=== PATIENT | female | born 1990 | race Caucasian/White ===

== ENCOUNTER 2021-09-14 21:12 | Emergency (ER) | payer OTHER, SELFPAY ==
[2021-09-14 21:38] VITALS: BP 127/27; PULSE 95; RESP 18; TEMP 36.9; O2SAT 98
[2021-09-14 21:52] LABS: Bilirubin Negative (Negative); Blood Trace-lysed (Negative); Clarity Clear (Clear); Glucose Negative (Negative); Ketones Negative (Negative); Leukocyte Esterase Negative (Negative); Nitrite Negative (Negative); Specific Gravity 1.025 (1.005-1.025); Urobilinogen 0.2 EU/dL (Up TO 0.2)
--- NOTE | 2021-09-14 21:58 | ED.GENADUL_ITS ---
Discharge Plan Disposition Patient Disposition: HOME Condition: Improving Discharge Details Clinical Impression: Dysuria Primary Care Provider: Unknown,Unknown ED Provider: Terry Stafford Home Meds and New Rx's Prescriptions: New cephalexin 500 mg capsule 500 mg PO TID 7 Days Qty: 21 RF: 0 Discharge Instructions Instructions: Dysuria (ED) Additional Instructions: At this time your CAT scan is negative for any significant abnormality per our radiologist. We will continue you on a medication called Keflex. We we will start the process to establish a new primary care provider for you. If you notice any worsening of your symptoms, or any new symptoms such as vomiting, diarrhea, fever, chills, shortness of breath, chest pain, numbness, weakness, or fainting , please return immediately to the emergency department for reevaluation. Please follow up with your primary care provider as soon as possible for reassessment and reevaluation. As always, it was a pleasure p articipating in your medical care today. Medical Decision Making <Arpan Oglesby MD - Last Filed: 09/14/21 22:49> 30-year-old female states she has had 2 weeks of recurrent symptoms of urinary tract infection with urgency, burning with urination, increased frequency of urination. She states she was treated with a course of Bactrim for 5 days in the middle of the month, seems to have recurrent symptoms and then was placed on ofloxacin which she finished 2 days ago. She states she is were prescribed by [employer]. She recently moved to [place] from her home in [place] and needs to reestablish primary care. Patient arrives ER afebrile, slightly depressed heart rate. She does have suprapubic tenderness and left flank tenderness on exam. Differential diagnosis includes pyelonephritis, cystitis, kidney stone or underlying renal abscess. Patient IV access established, given fluid bolus, acetaminophen, referred for laboratory testing, urinalysis and CT imaging. <Terry Stafford DO - Last Filed: 09/14/21 23:59> Case was signed out to me by my colleague Dr. Arpan Oglesby. Please refer to his HPI, physical exam assessment and plan. At time of signout we are pending CT scan. Per virtual radiology there is no evidence of acute process noted on CT scan. Patient's laboratory work-up has returned notably reassuring. No evidence of severe UTI or pyelonephritis. Pending urine culture per Dr. Oglesby. Dr. Oglesby did recommend IV antibiotics ceftriaxone and continuation with Keflex for the next few days. We will continue with this plan. On reassessment patient stable, appears well. No signs of an acute surgical abdomen. Vital signs stable. Patient stable for discharge at this time, will continue with plan. That being said we will start the process for establishment of new primary care provider, they will discuss with the patient the importance of potential further evaluation by urology in the future if symptoms do not resolve. Discussed red flags which return. I have extensively reviewed the treatment plan and discharge instructions with the patient. I have addressed all patient concerns at this time. The patient was made aware of what symptoms to monitor for that would warrant a return to the emergency department. Discussed the plan with the patient, they demonstrate verbal understanding and agreement with our assessment and plan at this time. The documentation in this chart was dictated using [employer] dictation software. Please excuse any dictation errors. FINDINGS: Liver: Normal. No mass. Gallbladder and bile ducts: Normal. No calcified stones. No ductal dilation. Pancreas: Normal. No ductal dilation. Spleen: Normal. No splenomegaly. Adrenal glands: Normal. No mass. Kidneys and ureters: Normal. No hydronephrosis. Stomach and bowel: Unremarkable. No obstruction. No mucosal thickening. Appendix: No evidence of appendicitis. Intraperitoneal space: Unremarkable. No free air. No significant fluid collection. Vasculature: Unremarkable. No abdominal aortic aneurysm. Lymph nodes: Unremarkable. No enlarged lymph nodes. Urinary bladder: Unremarkable as visualized. Reproductive: Unremarkable as visualized. Bones/joints: Unremarkable. No acute fracture. Soft tissues: Unremarkable. IMPRESSION: No acute findings. Thank you for allowing us to participate in the care of your patient. Dictated and Authenticated by: Leonardo Tomas MD 09/14/2021 11:11 PM Eastern Time ([place] & [place]) HPI <Arpan Oglesby MD - Last Filed: 09/14/21 22:49> General Mode of arrival: ambulatory . Date/Time Provider Initiated Documentation: 09/14/21 21:30 . Limitations to Documentation: no limitations . Information obtained by: patient . History of Present Illness 30 year old F presents to the emergency department with the chief complaint of Left greater than right flank pain and dysuria, described as moderate and similar to prior episodes, Quality is described as dull, and is localized to the back and left. Patient reports no radiation. Patient started experiencing this day(s) and it has been intermittent. No relieving factors improve symptom(s), No exacerbating factors reported . Patient notes fever/chills and loss of appetite. Patient did receive the following treatments prior to arrival, other (Course of Bactrim for 5 days approximately August 31-, ciprofloxacin for 5 days finishing 2 days) Related Data Home Medications Medication Instructions Recorded Confirmed cephalexin 500 mg PO TID 7 Days #21 cap 09/14/21 Previous Rx's Medication Instructions Recorded cephalexin 500 mg PO TID 7 Days #21 cap 09/14/21 Allergies Allergy/AdvReac Type Severity Reaction Status Date / Time amoxicillin AdvReac Unverified 09/14/21 21:43 General Stated Complaint: Urinary ZEUS: 4 Review of Systems <Arpan Oglebsy MD - Last Filed: 09/14/21 22:49> Narrative: See HPI. No nausea or vomiting. Positive subjective fevers at home but no objective fevers. Currently having menses. 8 systems reviewed and otherwise negative PFSH <Arpan Oglesby MD - Last Filed: 09/14/21 22:49> All Active Problems (Updated 09/14/21 @ 22:48 by Arpan Oglesby MD) Dysuria (Acute) Social History Smoking/Tobacco Use Status: Never Smoking risk assessment performed?: Yes Substance use type: does not use Do you feel safe at home: Yes Do you feel safe in your relationship?: Yes Exam <Arpan Oglesby MD - Last Filed: 09/14/21 22:49> Narrative Exam Narrative: GEN: awake, alert, oriented 3. Pleasant, well groomed, interactive. HEAD: Normocephalic, atraumatic ENT: Mucous membranes moist, oropharynx unremarkable, External ear exam unremarkable EYES: PERRL, EOMI NECK: Full ROM, no KERI, no menigismus CHEST/RESP: Nontender, clear to auscultation bilateral, no wheeze/rhonchi/rales CARDIOVASCULAR: RRR, no murmur, rub destin. 2+ Rad pulse bilateral ABDOMEN: Soft, suprapubic tenderness, no mass. +Bowel sounds. Minimal left flank tenderness to percussion. EXT: Full ROM, no edema, no rash Neuro: Grossly normal neurologic exam, conversant, interactive. Psych: Speech fluent, thoughts congruent, affect normal Course <Arpan Oglesby MD - Last Filed: 09/14/21 22:49> Vital Signs Vital signs: Vital Signs Temperature 36.9 C 09/14/21 21:38 Pulse 95 H 09/14/21 21:38 Respiratory Rate 18 09/14/21 21:38 Blood Pressure 127/27 L 09/14/21 21:38 Pulse Oximetry 98 09/14/21 21:38 Temperature 36.9 C 09/14/21 21:38 Temperature Source Oral 09/14/21 21:38 Pulse 95 H 09/14/21 21:38 Respiratory Rate 18 09/14/21 21:38 Respiratory Effort 09/14/21 21:47 Blood Pressure 127/27 L 09/14/21 21:38 Blood Pressure Position Sitting 09/14/21 21:38 Pulse Oximetry 98 09/14/21 21:38 Pain Level 6 09/14/21 21:38 Lab/Test Results Lab/Test Results: POC- Test(urine) Negative Sign Out <Arpan Oglesby MD - Last Filed: 09/14/21 22:49> Sign Out Data: Sign Out Comment: followup CT, ? L pyelo/stone Last updated by Arpan Oglesby MD at 09/14/21 22:45
[2021-09-14 22:03] LABS: Bacteria Rare HPF (Negative); C & S Indicated? No; Casts Negative LPF (Negative); Crystals Negative HPF (Negative); Epithelial Cells Rare HPF (Negative); Mucus Negative (Negative); WBC Negative HPF (0-5)
[2021-09-14 22:19] LABS: Abs Immature Grans 0.03 10^3/uL (0.0-0.06); Absolute Basophil Count 0.06 10^3/uL (0.0-0.2); Absolute Eosinophil Count 0.14 10^3/uL (0.0-0.7); Absolute Lymphocyte Count 3.64 10^3/uL (1.2-3.4); Absolute Monocyte Count 0.54 10^3/uL (0.1-0.8); Absolute Neutrophil Count 4.37 10^3/uL (1.2-6.7); Basophils % 0.7; Eosinophils % 1.6; HCT 37.9 % (36.0-46.0); HGB 12.8 g/dL (11.2-15.7); Immature Grans % 0.3; Lymphocytes % 41.5; MCH 31.1 pg (27.0-33.0); MCHC 33.8 % (32.0-36.0); MPV 8.6 fL (8.0-11.0); Monocytes % 6.2; Neutrophils % 49.7; Nucleated RBC 0 %; Platelet Count 306 10^3/uL (130-400); RBC 4.12 10^6/uL (3.93-5.22); RDW 11.9 % (11.7-14.6); RDW-SD 40.4 fL; WBC 8.78 10^3/uL (4.4-10.8)
[2021-09-14] MEDS: ACETAMINOPHEN 1,000 MG/100 ML BTL 400 MG IVPB (22:27)
[2021-09-14] MEDS: Normal Saline 1,000 ML 1000 ML IV (22:27)
[2021-09-14 22:32] LABS: ALT 22 U/L (14-59); AST 13 U/L (15-37); Albumin 4.1 g/dL (3.4-5.0); Alkaline Phosphatase 50 U/L (46-116); Anion Gap 5.6 mmol/L (3-11); BUN 13 mg/dL (7-18); Bilirubin, Total 0.2 mg/dL (0.2-1.0); CO2 30.4 mmol/L (21.0-32.0); CREATININE 0.8 mg/dL (0.55-1.02); Calcium 8.4 mg/dL (8.5-10.1); Chloride 102 mmol/L (98-107); Glucose 92 mg/dL (74-106); Potassium 3.7 mmol/L (3.5-5.1); Sodium 138 mmol/L (136-145); Total Protein 7.5 g/dL (6.4-8.2)
--- NOTE | 2021-09-14 22:43 | DI.CT_ITS ---
Exam(s) CT RENAL COLIC WO EXAM: CT RENAL COLIC WO CLINICAL HISTORY: L flank pain, dysuria. TECHNIQUE: Imaging Protocol: Axial computed tomography images with coronal and sagittal reformatted images were created and reviewed CONTRAST MATERIAL: Intravenous: none Oral: None COMPARISON: No exams were available for comparison FINDINGS: VISUALIZED LUNG BASES: No nodules nor pleural effusions evident. ABDOMEN: There is no ascites. LIVER: There are no obvious focal hepatic lesions evident of this noninfused study. GALLBLADDER/BILIARY: Gallbladder is contracted and difficult to evaluate. No obvious calcified galls tones. CBD is not dilated. PANCREAS: No evidence of pancreatic mass nor dilatation of the pancreatic duct. SPLEEN: Spleen is not enlarged. No obvious intrasplenic lesions. ADRENALS: There are no significant adrenal masses. KIDNEYS:No cysts evident. No solid renal masses. No calculi nor hydronephrosis. . ABDOMINAL AORTA: Abdominal aorta is not enlarged. LYMPH NODES: There is no retroperitoneal nor paraaortic adenopathy. ABDOMINAL WALL: No evidence of significant anterior abdominal wall nor inguinal hernia. GI: There is no evidence of bowel obstruction, free air, nor abscess. PELVIS: LYMPH NODES: There is no intrapelvic nor inguinal adenopathy. GI: No evidence of appendicitis.No evidence of sigmoid diverticulitis. URINARY BLADDER: Bladder wall appears uniformly thickened. No discrete mass therein. No calculi. REPRODUCTIVE: Uterus unremarkable. Follicular cysts are noted in both ovaries. OSSEOUS: No significant osseous lesions. IMPRESSION: 1. No evidence of urinary tract calculi nor obstructive uropathy. 2. The wall of the urinary bladder is uniformly thickened, possibly related to chronic cystitis. 3. Follicular cysts are noted in both ovaries. There is no free fluid. Gallbladder is contracted. If gallbladder suspect then follow-up ultrasound can be performed. RADIATION DOSE DELIVERED: 646.7mGy.cm Total DLP DATA REPOSITORY: All CT scans at this facility are submitted to the National Radiology Data Registry (NRDR) Dose Index Registry (DIR) with the [employer] (ACR). RADIATION OPTIMIZATION: All CT scans at this facility use at least one of these dose optimization te chniques: automated exposure control; mA and/or kV adjustment per patient size (includes targeted exa ms where dose is matched to clinical indication); or iterative reconstruction.
[2021-09-14] MEDS: cefTRIAXone 1 GM/50 ML BAG IVPB (23:03)
--- NOTE | 2021-09-14 23:11 | DI.VRAD_ITS ---
PROCEDURE INFORMATION: Exam: CT Abdomen And Pelvis Without Contrast Exam date and time: 09/14/2021 9:59 PM Age: 30 years old Clinical indication: Abdominal pain; Patient HX: Left flank pain, dusuria TECHNIQUE: Imaging protocol: Computed tomography of the abdomen and pelvis without contrast. Radiation optimization: All CT scans at this facility use at least one of these dose optimization techniques: automated exposure control; mA and/or kV adjustment per patient size (includes targeted exams where dose is matched to clinical indication); or iterative reconstruction. COMPARISON: No relevant prior studies available. FINDINGS: Liver: Normal. No mass. Gallbladder and bile ducts: Normal. No calcified stones. No ductal dilation. Pancreas: Normal. No ductal dilation. Spleen: Normal. No splenomegaly. Adrenal glands: Normal. No mass. Kidneys and ureters: Normal. No hydronephrosis. Stomach and bowel: Unremarkable. No obstruction. No mucosal thickening. Appendix: No evidence of appendicitis. Intraperitoneal space: Unremarkable. No free air. No significant fluid collection. Vasculature: Unremarkable. No abdominal aortic aneurysm. Lymph nodes: Unremarkable. No enlarged lymph nodes. Urinary bladder: Unremarkable as visualized. Reproductive: Unremarkable as visualized. Bones/joints: Unremarkable. No acute fracture. Soft tissues: Unremarkable. IMPRESSION: No acute findings. Dictated and Authenticated by: Leonardo Tomas MD. Ordering:MARGI Antony MD
[2021-09-14 23:40] VITALS: BP 117/77; PULSE 77; RESP 16; O2SAT 96
--- NOTE | 2021-09-15 03:02 | NUR.NOTE ---
Nursing Note: need to be set up with a pcp and i put referral in the care management mailbox
== END 2021-09-14 23:42 | disposition home or self-care (01) ==
PROVIDERS: Emergency Medicine; Emergency Provider Student in an Organized Health Care Education/Training Program
DX: R30.0 Dysuria (principal); R35.0 Frequency of micturition; R10.9 Unspecified abdominal pain
CPT/HCPCS: 36415; 80053; 81025; 99284; 74176; 81003; 81015; 85025; 99283; J0131; J0696

== ENCOUNTER 2021-11-07 14:35 | Outpatient (REF) | payer MEDICAID, SELFPAY ==
--- NOTE | 2021-11-07 14:10 | PAPFT_PTH ---
PATIENT: Rach Howard LOC: [facility] U#:[id number] AGE/SX: 31/F ROOM: RE11/07/[address]: Maryse Saba DO : 1990 BED: DIS: 11/07/2021 SPEC #: [id number] RECD: 11/07/21 17:38 STATUS: FAUSTO REQ #: [id number] NESHA: 11/07/21 14:[address]: Maryse Saba DEPT: [facility] Cytology RECD BY: Marylou Good Tissues: 1 - CX/ENDOCX FOR PAP SMEARS Procedures: PAP THIN PREP/UVM Screening HPV DNA PROBE Comments: [id number] (CHLAMYDIA/GC)
[2021-11-08 15:12] LABS: Chlamydia Result Negative (Negative); GC Result Negative (Negative)
== END 2021-11-07 14:36 | disposition home or self-care (01) ==
LOC: LBN 14:35
PROVIDERS: Obstetrics & Gynecology Gynecology; Visit Provider Obstetrics & Gynecology
DX: Z12.4 Encounter for screening for malignant neoplasm of cervix (principal); Z11.51 Encounter for screening for human papillomavirus (HPV)
CPT/HCPCS: 87491; 87591; 88142; 87624

== ENCOUNTER 2022-01-25 17:05 | Outpatient (REF) | payer MEDICAID, SELFPAY ==
[2022-01-26 10:46] LABS: Bilirubin Negative (Negative); Blood Small (Negative); Clarity Clear (Clear); Glucose Negative (Negative); Ketones Negative (Negative); Leukocyte Esterase Negative (Negative); Nitrite Negative (Negative); Urobilinogen 0.2 EU/dL (Up TO 0.2)
[2022-01-26 11:06] LABS: Bacteria Negative HPF (Negative); C & S Indicated? C&S Done As Ordered; Casts Negative LPF (Negative); Crystals Negative HPF (Negative); Epithelial Cells Few HPF (Negative); Mucus Trace (Negative); RBC 0-2 HPF (0-2); WBC Negative HPF (0-5)
== END 2022-01-25 17:06 | disposition home or self-care (01) ==
LOC: LBN 17:05
PROVIDERS: PCP Nurse Practitioner Family; Visit Provider Nurse Practitioner Gerontology
DX: R10.2 Pelvic and perineal pain (principal); R30.0 Dysuria; Z87.440 Personal history of urinary (tract) infections
CPT/HCPCS: 81003; 81015; 87086

== ENCOUNTER → 2022-04-06 00:46 | Outpatient (CLI) | payer MEDICAID, SELFPAY ==
--- OUTSIDE RECORDS SUMMARY | 2022-04-03 00:45 | XMS_ITS | Encounter Summary ---
:1990 Author Organization [facility] [place] [address] Care Team Providers Name Role Phone Sejal Shah APRN Primary Care Provider [phone] Reason for Referral Consultation (Routine) - Denied Specialty Diagnoses / Procedures Referred By Contact Refer red To Contact Rheumatology Diagnoses Mckay-Danlos syndrome Sejal Shah [facility] Rheumatology [address]c [employer] [facility] [address] [place] [id number] [place], [place] [address] Referral ID Status Reason Start Date Expiration Date Visits V isits Requested Authorized [id number] Denied Consult, Test 02/28/2022 02/28/2023 6 0 & Treat PCP Updated and/or Approved Encounter Details Date Type Department Care Team Description 02/28/2022 Transcribe Orders eDH Incoming Tone Shah los kiki Reaves [phone] [employer] [address] [place] [address] Social History Tobacco Use Types Packs/Day Years Used Date Never Assessed Sex Assigned at Date Recorded Not on file documented as of this encounter Plan of Treatment Scheduled Referrals Name Type Priority Associated Order Schedule Diagnoses Referral to Outpatient Referral Routine Mckay-Danlos Ordered : Rheumatology syndrome 02/28/2022 documented as of this encounter 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
--- OUTSIDE RECORDS SUMMARY | 2022-04-03 00:45 | XMS_ITS | Encounter Summary ---
:1990 Author Organization [facility] Address [address] [place] [address] Care Team Providers Name Role Phone Unavailable Primary Care Provider Unavailable Encounter Details Date Type Department Care Team Description 11/07/2021 Lab Requisition [facility] Maryse Saba Encounter for other Pathology & [address] [place] [address] general examination Laboratory Medicine [facility] [id number] [address] [facility] [phone] [place] [address] (Work) [phone] Social History Tobacco Use Types Packs/Day Years Used Date Never Assessed Sex Assigned at Date Recorded Not on file documented as of this encounter Plan of Treatment Not on filedocumented as of this encounter Procedures Procedure Name Priority Date/Time Associated Comments Diagnosis PAP TEST Today 11/07/2021 14:10 Encounter for other Resu lts for this EST general examination procedur e are in the results section. CHLAMYDIA/N. Today 11/07/2021 14:10 Results for this GONORRHOEAE AMPLIFIED EST proced ure are in RNA, THINPREP the results section. HUMAN PAPILLOMAVIRUS Today 11/07/2021 14:10 Encounter for ot her Results for this (HPV) DETECTION-HIGH EST general examination procedure are in RISK TYPES the results section. documented in this encounter Results HUMAN PAPILLOMAVIRUS (HPV) DETECTION-HIGH RISK TYPES (11/07/2021 14:10 EST) Human Papillomavirus NegativeComment: No Negative [facility] (HPV) Detection-High E6 or E7 mRNA is CENTER LABORATOR Y Types detected from HPV SERVICES types 16,18,31,33,35,39,45 ,51,52,56,58,59,66, and 68 by coal trammer mediated amplification. Specimen Pap Test - Cervix and/or Endocervix Performing Organization Address City/State/ZIP Code Phon e Number [facility] [address] [phone] SERVICES PAP TEST (11/07/2021 14:10 EST) Specimens A. Cervix and/or [facility] MEDICAL Endocervix , ThinPrep CENTER Imaging System with LABORATORY Manual Evaluation SERVICES Specimen Adequacy Satisfactory for [facility] Evaluation - CENTER transformation zone LABORATORY component present SERVICES General Negative for [facility] intraepithelial SIDON lesion or malignancy LABORATORY SERVICES Attestation . [facility] Electronically CENTER signed by Tavon santos, LABORATORY NACHO Greco( CP) SERVICES on 11/17/2021 at 1529 Clinical History See below [facility] SERVICES HPV The result for the Human Pap illomavirus (HPV) Detection-High Risk Types is Negative. No E6 or E7 mRNA is detected from HPV types 16,18,31,33,35,39,45,51,52,56,58,59,66, and 68 by coal trammer mediated [facility] amplification.Testing was pe rformed on specimen [id number] and was resulted on 11/17/2021 1508 EST by FRIDA, LAB INSTRUMENT RESULTS IN [facility] SERVICES Performing Lab [facility] SERVICES Scanned Images [facility] SERVICES Specimen Pap Test - Cervix and/or Endocervix Performing Organization Address City/State/ZIP Code Phon e Number [facility] [address] [place] [address] SERVICES CHLAMYDIA/N. GONORRHOEAE AMPLIFIED RNA, THINPREP (11/07/2021 14:10 EST) Pathologist Sig nature Gonococcus Result Negative Negative [facility] SERVICES Chlamydia Result Negative Negative [facility] SERVICES Specimen Pap Test - Cervix and/or Endocervix Performing Organization Address City/State/ZIP Code Phon e Number [facility] [address] [place] [address] SERVICES documented in this encounter Visit Diagnoses Diagnosis Encounter for other general examination documented in this encounter
--- OUTSIDE RECORDS SUMMARY | 2022-04-03 00:45 | XMS_ITS | Encounter Summary ---
:1990 Author Organization [facility] [place] [address] Care Team Providers Name Role Phone Sejal Shah APRN Primary Care Provider [phone] Reason for Referral Allergy Testing (Routine) - Authorized Specialty Diagnoses / Procedures Referred By Contact Refer red To Contact Allergy Diagnoses Allergic rhinitis due to pollen, unspecified seasonality Ethan Styles PA [facility] Allergy [address] [place] [address] [place] [address] Phone: Fax: Referral ID Status Reason Start Expiration Visits Visits Date Date Requested Authorized [id number] Authorized Consult, 03/05/2022 03/05/2023 10 10 Test & Treat PCP Updated and/or Approved Encounter Details Date Type Department Care Team Description 03/05/2022 Transcribe Orders eDH Incoming Ethan Styles Alle rgic rhinitis Referrals PA due to pollen, [address] [facility] [place] [address] Social History Tobacco Use Types Packs/Day Years Used Date Never Assessed Sex Assigned at Date Recorded Not on file documented as of this encounter Plan of Treatment Scheduled Referrals Name Type Priority Associated Diagnoses Order S chedule Referral to Outpatient Referral Routine Allergic rhinitis due Ordered: Allergy to pollen, 03/05/2022 unspecified seasonality documented as of this encounter Visit Diagnoses Diagnosis Allergic rhinitis due to pollen, unspeci fied seasonality documented in this encounter Care Teams Foil Stamp Operator Relationship Specialty Start Date End Date Sejal Shah APRN PCP - General Family Medicine 12/13/21 [address] [place] [address] documented as of this encounter
--- OUTSIDE RECORDS SUMMARY | 2022-04-03 00:45 | XMS_ITS | Clinical Summary ---
:1990 [place] [address] Care Team Providers Name Role Phone Sejal Shah APRN Primary Care Provider [phone] Encounters Date Type Specialty Care Team Description 03/05/2022 Transcribe Orders Primary Care Ethan Styles, Brian rgic rhinitis due to PA pollen, unspeci fied seasonality 02/28/2022 Transcribe Orders Primary Care Tone Shah syndrome KATE Post 02/28/2022 Transcribe Orders Primary Care Tone Shah syndrome KATE Post from Last 3 Months Social History Tobacco Use Types Packs/Day Years Used Date Never Assessed Sex Assigned at Date Recorded Not on file Plan of Treatment Health Maintenance Due Date Last Done Comments Covid-19 Vaccine (#1) 1995 HIV screen 2008 Hepatitis C Screening 2008 Tdap adult 2009 Tetanus vaccine 2009 HPV test 2020 PAP Smear 2020 Influenza (Flu) vaccine (1 of - Influenza standard 05/18/2022 series) Insurance Payer Benefit Plan / Subscriber ID Effective Dates Phone Addre ss Type Group [place] [id number] 2022-Prese [phone] [address] [facility] [address] [place], [place] [phone] (Home) [place] [address] Care Teams Pre Sales Technical Consultant Relationship Specialty Start Date End Date Sejal Shah APRN PCP - General Family Medicine 12/13/21 [address] [place] [address]
--- OUTSIDE RECORDS SUMMARY | 2022-04-03 00:45 | XMS_ITS | Clinical Summary ---
:1990 Author Organization [facility] Address [address] [place] [address] Care Team Providers Name Role Phone Unavailable Primary Care Provider Unavailable Social History Tobacco Use Types Packs/Day Years Used Date Never Assessed Sex Assigned at Date Recorded Not on file Plan of Treatment Health Maintenance Due Date Last Done Comments Hepatitis C Screen 1990 COVID-19 Vaccine (#1) 03/24/1991
--- OUTSIDE RECORDS SUMMARY | 2022-04-03 00:45 | XMS_ITS | Encounter Summary ---
:1990 Author Organization [facility] Address [facility] [place] [address] Care Team Providers Name Role Phone PabloSejal APRN Primary Care Provider Encounter Details Date Type Department Care Team Description 12/13/2021 Office Visit Dermatology at [place], Skin cancer screening; [place]AD[place] Multiple benign nevi of upper extremity, lower extremity, and trunk; [address] [facility] Tang angioma; [place] [address] Seborrheic dermatitis [phone] DERMATOLOGY [place] [id number] Social History Tobacco Use Types Packs/Day Years Used Date Never Assessed Sex Assigned at Date Recorded Not on file documented as of this encounter Progress Notes Criss Huynh MD - 12/13/2021 1:30 PM EDT Images from the original note were not included. DEPARTMENT OF DERMATOLOGY Medical Dermatology Clinic Provider: Criss Huynh MD Patient's preferred name Rach Preferred contact method for results []Phone []myD-H []Letter Detailed phone message OK? Are there any other people with whom we may discuss your care? Past Medical History Date, location, treatment Melanoma N Dysplastic nevi N SCC N BCC N AKs N UV Exposure & Protection N Other relevant past medical history N Family History Details Melanoma N NMSC N Other relevant family history N Social History Occupation: Hobbies: Other: Pre-Procedure Screening Details Allergy to lidocaine, epinephrine, Dermabond, chlorhexidine, or adhesives Bleeding disorder or blood thinners Pacemaker, defibrillator, deep brain stimulator, cochlear implant History of Present Illness: Rach Olson is a 31 y.o. Patient is new and self-referred to theclinic for a FSE, has spots of concern. - Flaky skin on forehead that has been ongoing since the age of 19. She has used T-Gel and T-Ravinder that has not helped. Triggers from stress - it becomes more flared. - Random patches scattered on extremities that are rough and scaly. - Hx of left upper eyelid swelling. Resolved, not present today. Medications: Reviewed in eD-H Allergies: Reviewed in eD-H Skin Examination: Full skin examination: Patient asked to undress to their comfort level. Verbalized that the provider???s preference is that the patient remove all clothing and that the provider will not examine areas patient elects to keep covered. Patient elects to keep bra and underwear on and have the following exa mined: scalp, hair, head, face, ears, neck, chest, axillae, abdomen, back, buttocks, and upper and lower extremities. Bra-covered area, genitalia, and buttocks were not examined. Assessment/Plan # Benign nevi - Scattered medium-brown macules and papules on the head, trunk, and extremities. - Reassured of benign appearance on exam today. - Reviewed warning signs of skin cancer - Recommend daily sun protection with protective clothing and SPF 30+ # Tang angiomas - scattered on the trunk and extremities are few bright red smooth papules. - Reassured of the benign nature of these lesions. No treatment needed. #. Seborrheic Dermatitis - Erythematous plaque with fine greasy scale involving the scalp, most prominent on the frontal scalp - Discussed the pathogenesis of this condition which is thought to involve an inflammatory response to [place]asezzia furfur yeast - Recommended rotating OTC dandruff shampoos containing salicylic acid (Tsal), zinc pyrithione (Headand Shoulders), selenium sulfide (Selsun Blue) daily, preferably alternating between several products weekly. Instructed patient to let sit on scalp 5-10 minutes prior to rinsing. Other: ??? Sun protection discussed (protective clothing and SPF30+ broad-spectrum sunscreen) ??? OTC skin products discussed RTC: Return in about 2 years (around 12/14/2023) for FSE. []Note routed to administrative secretary [x]Recall placed in scheduling system []Appointment scheduled at checkout Scribe attestation: REBECA Salvador has performed the documentation for this encounter in the presence of and acting as a scribe for Criss Huynh MD. I performed the above scribed service and agree with the accuracy of the documentation in this encounter. Reviewed and signed by: Criss Huynh MD Dermatology [facility] documented in this encounter Plan of Treatment Not on filedocumented as of this encounter Visit Diagnoses Diagnosis Skin cancer screening Screening for malignant neoplasm of the skin Multiple benign nevi of upper extremity, lower extremity, and trunk Tang angioma Nevus, non-neoplastic Seborrheic dermatitis Seborrheic dermatitis, unspecified documented in this encounter Care Teams Process Description Writer Relationship Specialty Start Date End Date Sejal Shah APRN PCP - General Family Medicine 12/13/[address] [place] [id number] documented as of this encounter
--- OUTSIDE RECORDS SUMMARY | 2022-04-03 00:46 | XMS_ITS ---
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 Problem Dysmenorrhea N94.6 Active 2241441 00 Problem Cystocele without N81.10 Active 42 4120924 uterine prolapse Problem Constipation K59.00 Active 7888695 8 Problem Joint pain M25.50 Active 82802408 Problem H/O abnormal Z87.42 Active 8293497 07 cervical Papanicolaou smear Problem Stress N39.3 Active 96736416 incontinence of urine Problem Autism spectrum F84.0 Active 3591 9005 disorder ALLERGIES Substance Reaction Event Type Date Status Amoxicillin Nausea and Vomiting Drug Allergy Feb, Active Ciprofloxacin Upset Stomach Drug Allergy Feb, Active ENCOUNTERS Encounter Location Date Diagnosis [address] Feb, Encounter to [place], [place] [id number] care Z76.89 ; Elevated glucose R73.09 ; Encounter for immunization Z23 ; Encounter for vi tamin deficiency scree mari Z13.21 ; Family history of breast cancer in mother Z80.3 ; Family p patrizia Z30.09 and Const ipation K59.[address] Feb, Migraines G43.909 [place], [place] [id number] [place] [address] So [facility] Feb, [facility] [place] [id number] [address] Feb, Dysuria R3 0.0 [place], [place] [id number] [address] January, [place] [id number] [address] January, Multiple e nvironmental [place], [place] [id number] allergies Z9 1.09 and Migraines G43.[address] January, [place] [id number] [address], January, [place] [id number] [address] Dec, Ear pressu re, bilateral [place], [place] [id number] H93.8X3 ; Si nus congestion R09.81 and Multi ple environmental al lergies Z91.[address], Dec, [place] [id number] [address] Dec, [place], [place] [id number] [address], Dec, [place] [id number] IMMUNIZATIONS Vaccine Route Administration Date Status COVID-19 Moderna 84784 Unknown February 02, 2021 Administe red COVID-19 Moderna 53098 Unknown January 05, 2021 Administe red Toradol Ketorolac Tromethamine IM Intramuscular February 09, 2022 Administered Toradol Ketorolac Tromethamine IM Intramuscular February 09, 2022 Administered TDaP Adult [facility] [address]97 IM Intramuscular March 06, 2022 Administe red SOCIAL HISTORY Qualifiers Date Former Smoker 09/17/2006 REASON FOR REFERRAL Reason APPT ON 01.27.[address] [facility] 12.29.2021 AR please evaluate and treat Please contact our office within 7 days to notify [facility] of sched uled appointment Appt 01/27/22 w/Ethan Styles. Pt is aware. Referral Organization [facility] Referring Provider First Name Sejal Referring Provider Last Name Pablo Referring Provider Specialty Nurse Practitioner Referring Provider Referring Provider email [email or web address] Referred Provider Femi Cortes Referred Provider Specialty Otolaryngology Referral Appointment Date 2022-01-27 Reason FAXED TO [facility] PCL 02.20.2022 A R Please evaluate and treat [facility] GENETICS Please con tact our office within 7 days to notify [facility] of sched uled appointment Referral Organization [facility] Mayur Azul Referring Provider First Name Sejal Referring Provider Last Name Pablo Referring Provider Specialty Nurse Practitioner Referring Provider Referring Provider email [email or web address] Referred Provider [facility],Physician Connection Chanel weinstein Referred Provider Specialty Unknown Reason 03.14.2022 PLEASE SEE NOTE AR FAXED TO [facility] PCL 02.20.2022 AR Please evaluate and treat Please contact our office within 7 days to noti fy [facility] of scheduled appointment Referral Organization [facility] Mayur Azul Referring Provider First Name Sejal Referring Provider Last Name Pablo Referring Provider Specialty Nurse Practitioner Referring Provider Referring Provider email [email or web address] Referred Provider [facility],Rheumatology Referred Provider Specialty Rheumatology Reason 03/07 LMOM Please evaluate an d treat Referral Organization [facility] Mayur Azul Referring Provider First Name Sejal Referring Provider Last Name Pablo Referring Provider Specialty Nurse Practitioner Referring Provider Referring Provider email [email or web address] Referred Provider [facility],Psychiatry Referred Provider Specialty Psychiatry Referral Appointment Date 2022-03-22 Reason FAXED TO [facility] 03.09.[address] ease evaluate and treat Please contact our office wi thin 7 days to notify [facility] of scheduled appointment Referral Organization [facility] Mayur Azul Referring Provider First Name Sejal Referring Provider Last Name Pablo Referring Provider Specialty Nurse Practitioner Referring Provider Referring Provider email [email or web address] [facility] Referred Provider Specialty Other Medical Care Reason CONSULT ON 05.30.22 PD; FAXE D TO [facility] 03.07.2022 AR Please evaluate and treat Please contact our office within 7 days to notify [facility] of scheduled appointment Referral Organization [facility] Mayur Azul Referring Provider First Name Sejal Referring Provider Last Name Pablo Referring Provider Specialty Nurse Practitioner Referring Provider Referring Provider email [email or web address] Referred Provider [facility], Gastroenterology Referred Provider Specialty Gastroenterology Referral Appointment Date 2022-05-30 Reason FAXED TO [facility] 03.15.[address] ease evaluate and treat Please contact our office wi thin 7 days to notify [facility] of scheduled appointment Referral Organization [facility] Referring Provider First Name Sejal Referring Provider Last Name Pablo Referring Provider Specialty Nurse Practitioner Referring Provider Referring Provider email [email or web address] Referred Provider [facility],Rheumat ology and Immunology Referred Provider Specialty Rheumatology FUNCTIONAL STATUS PLAN OF CARE Activity Details Future Appointment Provider Name:Sejal rooney, 2022-04-04 09:15:00 AM, [address] [place] [address] , [phone], Future Appointment Provider Name:Yazmin Wood, 2 10:00:00 AM, [address] [place] [address], [phone], Referral 2022-01-27, APPT ON 01.27.22 FAXED TO [facility] 12.29.2021 AR please evaluate and treat Please contact our office within 7 days to notify [facility] of scheduled tarun ointment Appt 01/27/22 w/Ethan Styles. Pt is aware., Floyd Cortes Referral FAXED TO [facility] PCL 6. A R Please evaluate and treat [facility] GENETICS Please contact ou r office within 7 days to notify [facility] of scheduled appointment, Ph ysician Connection Line [facility] Referral 03.14.2022 PLEASE SEE NOTE AR FAXED TO [facility] PCL 6. AR Please evaluate and treat Please contact our office within 7 days to notify [facility] of scheduled tarun ointment, Rheumatology [facility] Referral 2022-03-22, 03/07 LMOM Please evaluate and treat, Psychiatry [facility] Referral FAXED TO [facility] 03.09.[address] ease evaluate and treat Please contact our office within 7 days to notify [facility] of scheduled appointment, [facility] Referral 2022-05-30, CONSULT ON 05.30 PD; FAXED TO [facility] 03.07.2022 AR Please evaluate and treat Please contact our office within 7 days to notify [facility] of sched uled appointment, Gastroenterology [facility] Referral FAXED TO [facility] 03.15.[address] ease evaluate and treat Please contact our office within 7 days to notify [facility] of scheduled appointment, Rheumatology rainer duffy Immunology [facility] Pending Test MAMMOGRAM VITAL SIGNS Temperature 98.2 degrees Fahrenheit 2022-03-06 Heart Rate 86 BPM 2022-03-06 Oximetry 96 % 2022-03-06 Weight 122 lbs 2022-03-06 Blood pressure systolic 112 mmHg 2022-03-06 Blood pressure diastolic 68 mmHg 2022-03-06 MEDICATIONS Medication Instructions Dosage Frequency Start End Duration Statu s Date Date SUMAtriptan Orally Twice a 1 tablet at 30 day(s) Active Succinate 50 MG day prn least 2 hours between doses as needed at onset of migraine Multi Adult as directed Not-Charanjit n Gummies - g CBD OIL Active Probiotic 250 Orally Twice a 1 capsule 12h 30 day(s) Active MG day PROCEDURES Procedure Date Ordered Result Body Site IMMUNIZATION ADMIN March 06, 2022 TDAP VACCINE 7 and Up IM March 06, 2022 GLYCATED HEMOGLOBIN TEST March 06, 2022 CAPILLARY BLOOD DRAW March 06, 2022 SPECIMEN HANDLING February 17, 2022 THER/PROPH/DIAG INJ, SC/IM February 09, 2022 INJ KETOROLAC TROMETHAMINE 15 MG February 09, 2022 URINE-NO MICRO (Urine Dip Stick) February 17, 2022 RESULTS Name Result Date Reference Range HGA1C FINGERSTICK 2022-03-06 HGA1C 5.3 4 - 7 VITAMIN B12 AND FOLATE SERUM PANEL 2022-03-06 FOLATE, SERUM 15.9 VITAMIN B12 128 [id number] CMP 2022-02-24 ALBUMIN 4.7 3.6-5.1 ALBUMIN/GLOBULIN RATIO 2.1 1.0-2.5 ALKALINE PHOSPHATASE 47 31-125 ALT 15 6-29 AST 17 10-30 BILIRUBIN, TOTAL 0.3 0.2-1.2 UREA NITROGEN (BUN) 13 7-25 BUN/CREATININE RATIO NOT APPLICABLE 6-22 CALCIUM 9.2 8.6-10.2 CARBON DIOXIDE 25 20-32 CHLORIDE 108 98-110 CREATININE 0.85 0.50-1.10 eGFR 106 > OR = 60 eGFR NON-AFR. CONGOLESE 91 > OR = 60 GLOBULIN 2.2 1.9-3.7 GLOBULIN 2.2 1.9-3.7 GLUCOSE 156 65-139 POTASSIUM 4.0 3.5-5.3 PROTEIN, TOTAL 6.9 6.1-8.1 SODIUM 139 135-146 LYME DISEASE ANTIBODY IGG WESTERN BLOT 2022-02-15 0 18 KD (IGG) BAND NON-REACTIVE 23 KD (IGG) BAND NON-REACTIVE 28 KD (IGG) BAND NON-REACTIVE 30 KD (IGG) BAND NON-REACTIVE 39 KD (IGG) BAND NON-REACTIVE 41 KD (IGG) BAND REACTIVE 45 KD (IGG) BAND NON-REACTIVE 58 KD (IGG) BAND NON-REACTIVE 66 KD (IGG) BAND NON-REACTIVE 93 KD (IGG) BAND NON-REACTIVE LYME DISEASE AB(IGG),BLOT NEGATIVE NEGATI VE CBC WITH DIFF 2022-02-24 ABSOLUTE BASOPHILS 41 0-200 ABSOLUTE LYMPHOCYTES 3001 [id number] BASOPHILS 0.5 ABSOLUTE EOSINOPHILS 139 15-500 EOSINOPHILS 1.7 HEMATOCRIT 39.1 35.0-45.0 HEMOGLOBIN 13.6 11.7-15.5 LYMPHOCYTES 36.6 MCH 32.4 27.0-33.0 MCHC 34.8 32.0-36.0 MCV 93.1 80.0-100.0 ABSOLUTE MONOCYTES 410 200-950 MONOCYTES 5.0 MPV 9.0 7.5-12.5 NEUTROPHILS 56.2 ABSOLUTE NEUTROPHILS 4608 [id number] PLATELET COUNT 328 140-400 RED BLOOD CELL COUNT 4.20 3.80-5.10 RDW 12.0 11.0-15.0 WHITE BLOOD CELL COUNT 8.2 3.8-10.8 TSH THYROID STIMULATING HORMONE 2022-02-24 TSH 1.80 MAGNESIUM SERUM 2022-02-24 MAGNESIUM 1.9 1.5-2.5 URINE DIP IH 2022-02-17 Microscopic Examination Urine-Color Brown tinged Appearance cloudy Specific [place] 1.000 pH 30 Glucose neg Protein trace Occult Blood large Bilirubin neg Urobilinogen,Semi-Qn neg Nitrite, Urine neg Ketones neg Leukocyte esterase large HCG Urinalysis Gross Exam URINE CULTURE ROUTINE 2022-02-17 CULTURE, URINE, ROUTINE SEE NOTE THINPREP PAP REFLEX HPV mRNA E6 E7 with imaging COMMENT HPV mRNA E6/E7 REPORT STATUS: INTERPRETATION/RESULT: CLINICAL INFORMATION: COMMENT: DRY TALC RACKER: GENERAL CATEGORIZATION: INFECTION: LMP: PATHOLOGIST: PREV. BX: PREV. PAP: REVIEW DRY TALC RACKER: SOURCE: STATEMENT OF ADEQUACY: CMP 2020-11-08 AGAP ALKP ALT CA EGFRAA EGFRNAA A/G RATIO ALBUMIN ALK. PHOSPHATASE ALT(SGPT) ANION GAP AST (SGOT) BUN/CRE2 BUN/CREAT RATIO CALCIUM CHLORIDE CREATININE CREATININE GFR GFR GLOBULIN GLUCOSE POTASSIUM SODIUM TOTAL BILIRUBIN TOTAL PROTEIN GLUCOSE 90 65 - 99 mg/dl BUN 7 7 - 25 mg/dl CREATININE 0.69 0.50 - 0.99 mg/d l SODIUM 138 135 - 146 mmol/L POTASSIUM 3.9 3.5 - 5.3 mmol/L CHLORIDE 106 98 - 110 mmol/l CARBON DIOXIDE 26 CALCIUM 9.3 8.6 - 10.4 mg/dl ANION GP BUN/CREATININE RATIO eGFR NON-AFR. CONGOLESE 117 AST/SGOT 13 10 - 35 U/L ALT/SGPT 12 6 - 40 U/L ALKALINE PHOSPHATASE 37 33 - 130 U/ L BILIRUBIN TOTAL 0.4 .2 - 1.2 mg/dl ALBUMIN 4.7 3.6 - 5.1 g/dl PROTEIN TOTAL 7.4 6.1 - 8.1 g/dl ALBUMIN/GLOBULIN RATIO 1.7 1.0 - 2.5 calc eGFR ALBUMIN ALBUMIN/GLOBULIN RATIO ALKALINE PHOSPHATASE BILIRUBIN TOTAL BUN/CREATININE RATIO CALCIUM CARBON DIOXIDE CREATININE GLOBULIN GFR GLUCOSE POTASSIUM PROTEIN TOTAL POTASSIUM SODIUM A/G RAT AST/SGOT SODIUM PROTEIN TOTAL BUN CHLORIDE ALT/SGPT GLUCOSE BILIRUBIN TOTAL ALBUMIN PROTEIN TOTAL ALBUMIN BUN BILIRUBIN TOTAL CALCIUM CREATININE ALKALINE PHOSPHATASE AST/SGOT ALT/SGPT CARBON DIOXIDE BUN/CREATININE RATIO GLOBULIN A/G RATIO BUN/CREATININE RATIO ALKALINE PHOSPHATASE GLOBULIN AST/SGOT eGFR BUN CALCIUM CHLORIDE eGFR NON- CREATININE CARBON DIOXIDE GLUCOSE SODIUM POTASSIUM ALT/SGPT COMMENT EGFR HEPATITIS B SURFACE ANTIGEN WITH REFLEX CONFIRMATION HEPATITIS B SURFACE NON-REACTIVE CONFIRMATION DNR CBC WITH DIFF 2020-11-08 ABSOLUTE PLASMA CELLS ABSOLUTE PROLYMPHOCYTES PLASMA CELLS PROLYMPHOCYTES COMMENT WBC 9.4 RBC 4.16 HGB HEMOGLOBIN 13.1 HCT HEMATOCRIT 38.0 MCV 91.3 MCH 31.5 MCHC 34.5 RDW 12.6 PLT 313 NEUT % 66.1 LYMPH % 26.7 MONO % 5.4 EOSIN % 1.5 BASO % 0.3 ABSOLUTE REACTIVE LYMPHOCYTES NEUT ABS 6213 LYMPH ABS 2510 MONO ABS 508 EOSIN ABS 141 BASO ABS 28 [address] DIFF [address]T EST ANISO POIK CBC MORPHOLOGY COMMENT CONTAINER TYPE: FINAL RESOLUTION MESSAGE: NOTE QUESTION/PROBLEM ATYP LYM BANDS BASO NEUT EOSIN BAND NEUTROPHILS ABSOLUTE BAND NEUTROPHILS HYPO LYMPH METAMYELOCYTES ABSOLUTE METAMYELOCYTES MYELOCYTES ABSOLUTE MYELOCYTES MACRO PROMYELOCYTES ABSOLUTE PROMYELOCYTES MCHC LYMPHOCYTES METAS % REACTIVE LYMPHOCYTES ABSOLUTE LYMPHOCYTES MICRO MON MONOCYTES EOSINOPHILS MONO ABS BASOPHILS ABSOLUTE BASOPHILS NEUT ABS BLASTS NRBC ABSOLUTE BLASTS NUCLEATED RBC ABSOLUTE NUCLEATED RBC COMMENT(S) MPV RBCMORPH IMM CELL DIFFSCN MCH HEPATITIS C ANTIBODY /WITH REFLEX TO HCV 2020-10 RNA QUANTITATIVE REAL TIME PCR COMMENT HCV RNA, QUANTITATIVE REAL TIME PCR HCV RNA, QUANTITATIVE REAL TIME PCR HEPATITIS C ANTIBODY NON-REACTIVE SIGNAL TO CUT-OFF QUANTIFERON(R)-TB GOLD PLUS, 1 TUBE 2020-11-08 MITOGEN-NIL 8.21 NIL 0.03 QUANTIFERON(R)-TB GOLD PLUS, 1 TUBE TB1-NIL 0.01 TB2-NIL 0.01 REASON FOR VISIT Insurance Providers [facility] Member Patient Patient Patient Patient Patient Subscriber Subscriber Subscriber Group Insurance Plan Plan Plan Plan ID Relationship Address Phone Name Date of ID Name Date of No Type Insurance Insurance Insurance Coverage to Subscriber Address Phone Name Dates [place] [phone] [place] self [place] a [id number] [place] [address] MEDICAL (GENERAL) HISTORY Type Description Date Medical History Autism Spectrum Disorder, Level 1- Chanel S ilva, Psy. D. Medical History Diffuse Joint Pain, ? Ehler's Danlos Syn drome- recommend f/u w/ Bacteriologist Medical Medical History Migraines- menstral Medical History Alcohol use ([age]y/o) Medical History Cocaine use (16y/o) Medical History Epilepsy/Seizures Medical History Recurrent UTI's since childhood Medical History Recurrent Sinusitis since childhood, rec ommend f/u w/ [employer] in [place] Medical History Stress Incontinence Medical History 2019 Mild Cystocele Medical History Anemia Medical History High Blood Pressure Medical History H/O Abnormal Paps Medical History 2019 Full skin exam, Dermatology- Seborr heic Dermatitis, Benign Nevi, Tang Angioma Surgical History Tonsillectomy 04/2015 Hospitalization History Dysuria- [facility] 08/2021 Hospitalization History Urosepsis- [facility] 2018
--- NOTE | 2022-04-06 12:05 | DI.MAMMO_ITS ---
Exam(s) MAMMO SCREENING EXAM: MAMMO SCREENING CLINICAL HISTORY: SCREENING, FAM HX BREAST CA/MOTHER, Z80.3. TECHNIQUE: Bilateral full field digital CC and MLO mammographic images were obtained with 3D tomosyn thesis and utilizing computer aided detection (CAD). COMPARISON: Baseline mammogram on a 31-year-old patient with very positive family history. FINDINGS: The fibroglandular tissue pattern is moderately dense. There are no CAD designations. There are no significant radiograph findings in the right breast. In the upper outer quadrant of the left breast there is small area of asymmetric density possible nod ule. Spot compression ultrasound. No malignant-appearing microcalcification groups is region or els ewhere in either breast. There is no significant architectural distortion nor skin thickening-retraction. IMPRESSION: Moderately dense fibroglandular tissue. Possible left breast nodule. Spot compression view and ultr asound recommended. BI-RADS Category 0 - Assessment Incomplete: Need additional imaging evaluation Breast Density - Category C - Heterogeneously dense Breast density Category C or D implies that the patient has dense breast tissue. Dense breast tissue can make it harder to find cancer on a mammogram. Dense breast tissue is also associated with an incr eased risk of breast cancer. This information about the result of the mammogram report was provided to the patient to raise their awareness. Use this report when you speak with the patient about their risks for breast cancer, which includes their family history. At that time, you may recommend additional screening tests (Ultrasoun d or MRI) as these tests may add significant information. A negative radiographic report should not delay biopsy if a dominant or clinically suspicious mass is present. Up to ten percent of cancers are not identified on mammography. A negative report may reinforce clinical impression. Adenosis and dense breasts may obscure an underlying neoplasm. False positive reports average 6 to 10%. Patient will receive a letter notifying them of these results.
== END ==
PROVIDERS: PCP Nurse Practitioner Family; Visit Provider Nurse Practitioner Family
DX: Z12.31 Encounter for screening mammogram for malignant neoplasm of breast (principal); R92.8 Other abnormal and inconclusive findings on diagnostic imaging of breast; Z80.3 Family history of malignant neoplasm of breast
CPT/HCPCS: 77063; 77067

== ENCOUNTER → 2022-04-17 01:30 | Outpatient (CLI) | payer MEDICAID, SELFPAY ==
--- NOTE | 2022-04-17 | DI.US_ITS ---
Exam(s) MG MAMMO SCREEN CALL BACK UNI US BREAST LT LIMITED EXAM: MG MAMMO SCREEN CALL BACK UNI CLINICAL HISTORY: F/U MAMMO, POSSIBLE LT BREAST NODULE, ASYMMETRIC DENSITY TECHNIQUE: Mammograms were interpreted according to the usual protocol including computer analysis w ith CAD system, tomosynthesis and C-view imaging. COMPARISON: FINDINGS: Additional mammographic views of the left breast and left breast ultrasound are interpreted in conjun ction. These examinations were obtained to evaluate questionable areas of nodularity seen on recent baseline mammogram. Additional mammographic views fail to show a discrete mass. Breast ultrasound s hows no evidence of a mass or cyst. IMPRESSION: No specific evidence of malignancy at this time. Follow-up unilateral left breast mammogram recommen ded in 6 months. BI-RADS Category 3 - 6 month - Probably Benign Finding: Recommend follow-up mammography in 6 months Breast Density - Category C - Heterogeneously dense
== END ==
PROVIDERS: PCP Nurse Practitioner Family; Visit Provider Nurse Practitioner Family
DX: Z12.31 Encounter for screening mammogram for malignant neoplasm of breast (principal); R92.8 Other abnormal and inconclusive findings on diagnostic imaging of breast
CPT/HCPCS: 76642; 77063; 77067

== ENCOUNTER → 2022-06-22 02:02 | Outpatient (CLI) | payer MEDICAID, SELFPAY ==
--- NOTE | 2022-06-22 | DI.MRI_ITS ---
Exam(s) MR LUMBAR SPINE WO EXAM: MR LUMBAR SPINE WO INDICATION: PELVIC PAIN R10.2 HIP PAIN M25.559. COMPARISON: No exams were available for comparison TECHNIQUE: MR examination of the lumbosacral spine was performed according to the usual protocol. FINDINGS: No significant bony signal abnormality is seen. Intervertebral discs show normal signal. No signifi cant facet arthropathy identified. The conus medullaris appears intact. There is no evidence of a central canal spinal stenosis, or neural foraminal stenosis, in the lumbar region. No disc herniation is identified in the lumbar region. IMPRESSION: Negative lumbosacral spine MRI.
== END ==
PROVIDERS: PCP Nurse Practitioner Family; Visit Provider Nurse Practitioner Family
DX: R10.2 Pelvic and perineal pain (principal)
CPT/HCPCS: 72148

== ENCOUNTER 2022-10-19 02:06 | Outpatient (CLI) | payer MEDICAID, SELFPAY ==
--- NOTE | 2022-10-19 09:59 | DI.MAMMO_ITS ---
Exam(s) MG MAMMO DIAGNOSTIC UNI EXAM: MG MAMMO DIAGNOSTIC UNI CLINICAL HISTORY: ABNL MAMMO R92.8 6 MO FU TECHNIQUE: Cc and MLO mammogram images were performed according to the usual protocol including computer analysis with CAD system, tomosynthesis and C-view imaging. COMPARISON: MG MG MAMMO SCREENING from 04/06/2022 MG MG MAMMO SCREEN CALL BACK UNI from 04/17/2022 US US BREAST LT LIMITED from 04/17/2022 FINDINGS: The left breast is composed of scattered fibroglandular densities, Breast Density category B. No suspicious masses or suspicious microcalcifications are seen. Previously questioned area of nod ularity in the upper outer quadrant of the left breast knots visible on today's exam. No skin thickening or abnormal axillary lymph nodes are seen. IMPRESSION: BI-RADS Category 1, Negative mammogram Resume bilateral screening in 6 months. Breast Density - Category B, scattered fibroglandular densities. A negative radiographic report should not delay biopsy if a dominant or clinically suspicious mass is present. Up to ten percent of cancers are not identified on mammography. A negative report may reinforce clinical impression. Adenosis and dense breasts may obscure an underlying neoplasm. False positive reports average 6 to 10%. Patient will receive a letter notifying them of these results.
== END 2022-10-19 02:26 ==
LOC: DI 02:06
PROVIDERS: PCP Nurse Practitioner Family; Visit Provider Nurse Practitioner Family
DX: R92.8 Other abnormal and inconclusive findings on diagnostic imaging of breast (principal)
CPT/HCPCS: 77061; 77065; G0279

== ENCOUNTER 2022-12-15 00:33 | Outpatient (CLI) | payer MEDICAID, SELFPAY ==
--- NOTE | 2022-12-15 13:45 | DI.MRI_ITS ---
Exam(s) MR BRAIN WO EXAM: MR BRAIN WO CLINICAL HISTORY: WORSENING MIGRAINES, G43.119, INTRACTABLE WITH AURA TECHNIQUE: Multiplanar multisequence MRI of the brain was performed. COMPARISON: No exams were available for comparison FINDINGS: VENTRICLES AND EXTRA AXIAL SPACES: Normal in size and morphology for the patient's age. MIDLINE SHIFT : None. CEREBRAL PARENCHYMA: No focus of restricted diffusion to suggest acute infarct. No space-occupying le cecilio identified. HEMORRHAGE: None. BRAINSTEM/CEREBELLUM: Normal. VISUALIZED PARANASAL SINUSES/MASTOIDS:Clear. Vasculature: Normal flow void. PITUITARY GLAND: Unremarkable. ORBITS: Unremarkable. IMPRESSION: Unremarkable MRI of the brain. DATA REPOSITORY:
== END 2022-12-15 00:53 ==
PROVIDERS: PCP Nurse Practitioner Family; Visit Provider Nurse Practitioner Family
DX: G43.119 Migraine with aura, intractable, without status migrainosus (principal)
CPT/HCPCS: 70551

== ENCOUNTER 2024-10-14 02:27 | Outpatient (CLI) | payer MEDICAID, SELFPAY ==
--- NOTE | 2024-10-14 | DI.MAMMO_ITS ---
Exam(s) MAMMO SCREENING EXAM: MAMMO SCREENING CLINICAL HISTORY: Screening, family h/o breast ca in first-degree relative, Z80.3 TECHNIQUE: Bilateral full field digital CC and MLO mammographic images were obtained with 3D tomosyn thesis and utilizing computer aided detection (CAD). COMPARISON: Available for comparison. FINDINGS: Masses/Architectural Distortion: None seen. Microcalcifications: No suspicious pleomorphic-type are seen. Skin Thickening/Nipple Retraction: None. IMPRESSION: 1. No significant interval change with no specific features of malignancy noted. 2. Unless there is more urgent need, screening mammography is recommended, as per [employer] guidelines. BI-RADS Category 1 - Negative Breast Density - Category C - Heterogeneously dense Breast density category C or D implies that the patient has dense breast tissue. Dense breast tissue is very common and is not abnormal but dense breast tissue can make it harder to find cancer on a ma mmogram. Also, dense breast tissue may increase their breast cancer risk. This information about the result of the mammogram report was provided to the patient to raise their awareness. Use this report when you speak with the patient about their risks for breast cancer, which includes their family hist ory. At that time, you may recommend for more screening tests (Ultrasound or MRI) as they might be us eful based on their risk. A negative radiographic report should not delay biopsy if a dominant or clinically suspicious mass is present. Up to ten percent of cancers are not identified on mammography. A negative report may reinforce clinical impression. Adenosis and dense breasts may obscure an underlying neoplasm. False positive reports average 6 to 10%. Patient will receive a letter notifying them of these results.
== END 2024-10-14 02:47 ==
LOC: DI 02:27
PROVIDERS: PCP Nurse Practitioner Family
DX: Z80.3 Family history of malignant neoplasm of breast (principal); Q79.60 Ehlers-Danlos syndrome, unspecified; R92.333 Mammographic heterogeneous density, bilateral breasts
CPT/HCPCS: 77063; 77067